=== PATIENT | female | born 1985 | race Caucasian/White ===

== ENCOUNTER 2023-08-20 08:42 | Emergency (ER) | payer OTHER ==
[~2023-08-20] VITALS: Ht 167.6 cm; Wt 61.7 kg
[2023-08-20 08:56] VITALS: BP_SYST 150; PULSE 81; RESP 16; TEMP 97.8; O2SAT 100
[2023-08-20 09:42] LABS: BILIRUBIN,URINE NEGATIVE (NEGATIVE); BLOOD, URINE NEGATIVE (NEGATIVE); CLARITY/URINE CLEAR (CLEAR); GLUCOSE,URINE NEGATIVE (NEGATIVE); KETONES,URINE NEGATIVE (NEGATIVE); LEUKOCYTE ESTERASE ,URINE NEGATIVE (NEGATIVE); NITRITE, URINE NEGATIVE (NEGATIVE); PROTEIN URINE NEGATIVE (NEGATIVE); UROBILINOGEN,URINE 0.2 (0.2-1.0)
[2023-08-20 09:46] LABS: COLOR,URINE STRAW (YELLOW)
[2023-08-20] MEDS ORDERED: IBUP-1969 PO (11:20)
[2023-08-20 11:37] VITALS: BP_SYST 129; PULSE 86; RESP 16; TEMP 98.1; O2SAT 97
== END 2023-08-20 11:30 | disposition home or self-care (01) ==
LOC: SED 08:42
DX: N83.202 Unspecified ovarian cyst, left side (principal); R10.30 Lower abdominal pain, unspecified; R03.0 Elevated blood-pressure reading, without diagnosis of hypertension; Z98.890 Other specified postprocedural states
CPT/HCPCS: 76856; 81001; 81003; 81025; 99284